=== PATIENT | female | born 1945 | race Caucasian/White ===

== ENCOUNTER 2017-11-02 18:26 | Emergency (ER) | payer SELFPAY ==
[~2017-11-02] VITALS: Ht 160 cm; Wt 57.0 kg
[2017-11-02 19:27] VITALS: BP 118/58; PULSE 66; RESP 16; TEMP 98.9; O2SAT 98
--- NOTE | 2017-11-02 20:24 | PD ---
HPI Chief Complaint: Injury Time Seen by Provider: 19:36 Travel History International Travel<30 days: No Contact w/Intl Traveler<30days: No Traveled to known affect area: No History of Present Illness HPI 72-year-old female presents to the emergency room for evaluation of left ankle pain and swelling after injuring it earlier today. Patient had a mechanical fall earlier today. She adamantly denies hitting her head or loss of consciousness. Denies any other injuries. States she felt and heard her ankle pop. She does not remember a inversion or eversion injury. Since then she has had constant, severe pain. Worse with range of motion and ambulation. She has been using her 's cane to ambulate. She took tramadol without any relief in symptoms. She denies paresthesias. PFSH Past Medical History Medical other: Yes (back surgery , FIBRO ) ?: Not Past Surgical History Hysterectomy: Yes Social History Alcohol Use: Yes Tobacco Use: No Substance Use: No Allergies-Medications (Allergen,Severity, Reaction): Coded Allergies: No Known Drug Allergies (Verified Allergy, Unknown, 11/02/17) Reported Meds & Prescriptions Reported Meds & Active Scripts Active Hydrocodone-Acetaminophen 5-325 mg Tab 1 Tab PO Q6H PRN Review of Systems Except as stated in HPI: all other systems reviewed are Neg Physical Exam Narrative GENERAL: Well-nourished, well-developed female no acute distress. Afebrile. SKIN: Focused skin assessment warm/dry. Significant ecchymosis the left lateral ankle. HEAD: Normocephalic. EYES: No scleral icterus. No injection or drainage. NECK: Supple, trachea midline. No JVD or lymphadenopathy. CARDIOVASCULAR: Regular rate and rhythm without murmurs, gallops, or rubs. RESPIRATORY: Breath sounds equal bilaterally. No accessory muscle use. MUSCULOSKELETAL: No cyanosis. 2+ dorsalis pedis pulse. Limited range of motion of the ankle secondary to pain and swelling. Extreme tenderness to palpation of lateral and medial malleolus. Mild tenderness to palpation of the fifth metatarsal. Positive squeeze test. Data Data Last Documented VS Vital Signs Date Time Temp Pulse Resp B/P (MAP) Pulse Ox O2 Delivery O2 Flow Rate FiO2 11/02/17 19:27 98.9 66 16 118/58 (78) 98 Orders Orders Ankle, Complete ([id number]) (11/02/17 ) Foot, Limited (2vws) (11/02/17 ) Splint Or Brace Apply/Monitor (11/02/17 20:30) Ed Discharge Order (11/02/17 20:31) Crutches (11/02/17 20:31) MDM Medical Decision Making Medical Screen Exam Complete: Yes Emergency Medical Condition: Yes Medical Record Reviewed: Yes Differential Diagnosis Fracture, strain, sprain, contusion, dislocation Narrative Course 72-year-old female presents to the emergency room for evaluation of left ankle pain and swelling after mechanical trip and fall earlier today. Patient adamantly denies any other injuries. Physical exam reveals significant edema, mild ecchymosis of the left lateral ankle and extreme tenderness to palpation of the lateral malleolus. Neurovascularly intact with 2+ dorsalis pedis pulse. X-ray of the foot is negative. X-ray of the ankle shows mildly displaced fibular fracture. Patient placed in [facility] splint discharge with prescription for Lortab and crutches. She was instructed to follow-up with an orthopedic surgeon and stay nonweightbearing. Patient is on medication from [place] until Monday. She will call her orthopedic surgeon tomorrow morning for an appointment upon return home. She understands and agrees to plan. Diagnosis Primary Impression: Closed left fibular fracture Qualified Codes: S82.832A - Other fracture of upper and lower end of left fibula, initial encounter for closed fracture Referrals: Orthopaedic Surgeon Additional Instructions: Rest and drink plenty of fluids. Take Lortab with food as directed, as needed for pain. Do not drink alcohol or drive while taking this medication. Apply ice to the affected area for 20 minutes at a time, as needed for pain and swelling. Follow-up with a primary care physician. Return to the emergency room for worsening symptoms. Med/Other Pt SpecificInfo: Prescription(s) given Scripts Hydrocodone-Acetaminophen (Hydrocodone-Acetaminophen) 5-325 mg Tab 1 TAB PO Q6H Y for PAIN, #15 TAB 0 Refills Prov: Aman Acharya MD 11/02/17 Disposition: 01 DISCHARGE HOME Condition: Stable Maggie Guzman Nov 02, 2017 20:24
--- NOTE | 2017-11-02 20:27 | RADRPT ---
EXAM DATE/TIME: 11/02/2017 20:04 [facility] COMPARISON: ANKLE LEFT COMPLETE ([id number]), November 02, 2017, 20:05. INDICATIONS : Left lateral foot pain, fell MEDICAL HISTORY : Spinal stenosis. SURGICAL HISTORY : None. ENCOUNTER: Initial ACUITY: 1 day PAIN SCORE: 9/10 LOCATION: Left Foot FINDINGS: There is soft tissue swelling involving the lateral malleolus. There is an acute mildly displaced obl ique fracture involving the left distal fibula. Moderate to severe arthritis is noted involving the l eft first metatarsophalangeal joint. Achilles calcaneal spurring is noted. CONCLUSION: Acute mildly displaced oblique fracture involving the left distal fibula. Soft tissue swelling is not ed involving the lateral malleolus. 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 Achilles calcaneal spurring. Kenan Grande MD on November 02, 2017 at 20:25 Board Certified Radiologist. This report was verified electronically.
--- NOTE | 2017-11-02 20:28 | RADRPT ---
EXAM DATE/TIME: 11/02/2017 20:05 [facility] COMPARISON: No previous studies available for comparison. INDICATIONS : Left lateral ankle pain, fell MEDICAL HISTORY : None. SURGICAL HISTORY : None. ENCOUNTER: Initial ACUITY: 1 day PAIN SCORE: 9/10 LOCATION: Left Ankle FINDINGS: There is an acute mildly displaced oblique fracture involving the left distal fibula. Soft tissue swe lling is noted involving the lateral malleolus. The distal tibia is intact. Achilles calcaneal spurri ng is noted. The ankle mortise is intact. CONCLUSION: Acute mildly displaced oblique fracture involving the left distal fibula. Soft tissue swelling along lateral malleolus. Achilles calcaneal spurring. Kenan Grande MD on November 02, 2017 at 20:27 Board Certified Radiologist. This report was verified electronically.
[2017-11-02] MEDS ORDERED: HYDR-3516 PO (20:31)
== END 2017-11-02 21:34 | disposition home or self-care (01) ==
LOC: NEPK 18:26
DX: S82.832A Other fracture of upper and lower end of left fibula, initial encounter for closed fracture (principal); W01.0XXA Fall on same level from slipping, tripping and stumbling without subsequent striking against object, initial encounter
CPT/HCPCS: 29515; 73610; 73620; 99283; E0113